=== PATIENT | female | born 1980 | race Two or more races ===

== ENCOUNTER 2018-02-22 10:54 | Inpatient (IN) | payer OTHER ==
[~2018-02-22] VITALS: Ht 157.5 cm; Wt 72.6 kg
[~2018-02-22 10:54] MED LIST: CIPRO500 MG; ULTRACET
== END 2018-02-23 14:19 | disposition home or self-care (01) | DRG 342 ==
LOC: ER 10:54 → SEC-K 14:50 → SURH 17:55
PROVIDERS: Surgery
PROC: BW25ZZZ Computerized Tomography (CT Scan) of Chest, Abdomen and Pelvis (ICD-10-PCS; 2018-02-22)
PROC: 0DTJ4ZZ Resection of Appendix, Percutaneous Endoscopic Approach (ICD-10-PCS; principal; 2018-02-22 15:00)
PROC: B246ZZZ Ultrasonography of Right and Left Heart (ICD-10-PCS; 2018-02-23)
DX: K35.89 Other acute appendicitis (principal); I31.8 Other specified diseases of pericardium

== ENCOUNTER 2019-07-19 13:58 | Outpatient (CLI) | payer OTHER | END 2019-07-19 14:04 | disposition home or self-care (01) | LOC: LAB 13:58 | DX: L02.415 Cutaneous abscess of right lower limb (principal) ==

== ENCOUNTER → 2022-01-28 | Outpatient (CLI) | payer OTHER | END | disposition home or self-care (01) | LOC: MAMO-SONO 13:26 | PROVIDERS: ATTEND General Practice | DX: Z12.31 Encounter for screening mammogram for malignant neoplasm of breast (principal); N60.09 Solitary cyst of unspecified breast ==

== ENCOUNTER 2022-05-29 10:07 | Outpatient (CLI) | payer OTHER ==
[~2022-05-29 10:07] MED LIST changes: +DICLOFENAC POTA50 MG PO
== END 2022-05-29 10:13 | disposition home or self-care (01) ==
LOC: SONOGRAMA 10:07
PROVIDERS: ATTEND General Practice
DX: E03.9 Hypothyroidism, unspecified (principal)

== ENCOUNTER 2022-05-29 11:10 | Outpatient (CLI) | payer OTHER | END 2022-05-29 11:11 | disposition home or self-care (01) | LOC: LAB 11:10 | PROVIDERS: ATTEND General Practice | DX: E03.9 Hypothyroidism, unspecified (principal) ==

== ENCOUNTER 2022-12-17 10:06 | Outpatient (CLI) | payer OTHER ==
[~2022-12-17 10:06] MED LIST changes: +VOLTAREN ARTHRI20 GM TOP
== END 2022-12-17 10:10 | disposition home or self-care (01) ==
LOC: LAB 10:06
DX: Z20.822 Contact with and (suspected) exposure to COVID-19 (principal)

== ENCOUNTER 2024-04-09 14:54 | Outpatient (CLI) | payer OTHER | END 2024-04-09 15:02 | disposition home or self-care (01) | LOC: RAD 14:54 | PROVIDERS: ATTEND General Practice | DX: M79.641 Pain in right hand (principal); M25.541 Pain in joints of right hand; G89.11 Acute pain due to trauma ==

== ENCOUNTER 2024-08-15 22:03 | Emergency (ER) | payer OTHER ==
[~2024-08-15] VITALS: Ht 160 cm; Wt 77.1 kg
[2024-08-15] MEDS ORDERED: FAMOtidine 10 MG/ML (4ML VIAL) IV ONE (23:00)
[2024-08-15] MEDS ORDERED: ONDANSETRON HCL 2 MG/ML VIAL IV ONE (23:00)
[2024-08-15] MEDS ORDERED: 0.9 % SODIUM CHLORIDE 1,000 ML IV ONE (23:00)
[2024-08-16] MEDS ORDERED: FAMOTIDINE/PF 20 MG/2 ML VIAL ONE (00:37)
[2024-08-16] MEDS ORDERED: ONDANSETRON HCL 2 MG/ML VIAL ONE (00:37)
[2024-08-16 02:10] LABS: HEMATOCRIT 41.4 % (36.0-45.00); HEMOGLOBIN 13.6 g/dL (12.0-15.00); MEAN CELL VOLUME 90.5 fL (80.00-100.00); MEAN CORPUSCULAR HEMOGLOBIN 29.7 pg (27.00-32.0); MEAN CORPUSCULAR HGB CONC 32.8 g/dl (32.0-36.0); PLATELET COUNT 377 K/uL (150-450); RED BLOOD COUNT 4.57 M/uL (4.00-6.00); RED CELL DISTRIBUTION WIDTH 15.6 % (11.5-14.5)
[2024-08-16 02:31] LABS: INR 0.99; PARTIAL THROMBOPLASTIN TIME 26.5 SECONDS (22.0-34.0); PROTHROMBIN TIME 10.8 SECONDS (9.0-11.5)
[2024-08-16 02:40] LABS: ALKALINE PHOSPHATASE 66 U/L (50-136); ALT/SGPT 23 U/L (12-78); ANION GAP 11 (10.0-20.0); AST/SGOT 14 U/L (15-37); BILIRUBIN TOTAL 0.57 mg/dL (0.3-1.2); BLOOD UREA NITROGEN 12 mg/dL (7-18); BUN CREA RATIO 20 (7.0-25.0); CALCIUM 8.9 mg/dL (8.5-10.1); CARBON DIOXIDE 26 mEq/L (21-32); CHLORIDE 107 mmol/L (98-107); CREATININE SERUM 0.61 mg/dL (0.55-1.02); GFR 106.06; GLOBULINA 3.8 G/DL (2.4-3.5); GLUCOSE FASTING 89 mg/dL (65-100); OSMOLALITY SERUM 279 MOSM/KG (275-295); POTASSIUM 4.42 mEq/L (3.5-5.1); SODIUM 140 mmol/L (136-145); TOTAL PROTEIN 7.8 gm/dL (6.4-8.2)
[2024-08-16 02:58] LABS: HCG QUANTITATIVE < 1 mUI/mL (1-3)
[2024-08-16 04:17] LABS: PH,URINE 5.5 (5.0-8.0); URINE APPEARANCE Clear; URINE BILIRRUBIN Negative (NEGATIVE); URINE BLOOD Negative; URINE COLOR Yellow; URINE GLUCOSE Negative (NEGATIVE); URINE KETONE Trace (NEGATIVE); URINE LEUKOCYTE Negative; URINE NITRATE Negative; URINE PROTEIN Trace (NEGATIVE); URINE UROBILINOGEN 0.2 E.U./dl
[2024-08-16 04:21] LABS: URINE BACTERIA 806.4 uL (0.0-1933); URINE EPITHELIAL CELLS 18.1 uL (0.0-38.8); URINE RBC 22.3 uL (0.0-20.8); URINE WBC 8.5 uL (0.0-23.2)
[2024-08-16 04:22] LABS: URINE CAST 0.44 uL (0.0-1.40)
[2024-08-16] MEDS ORDERED: ZOFRAN8 MG PO (06:00)
[2024-08-16] MEDS ORDERED: PEPCID40 MG PO ×2 (06:00→06:01)
[2024-08-16] MEDS ORDERED: INTESTINEX680 M2 PO (06:00)
== END 2024-08-16 06:28 ==
LOC: ER 22:06
PROVIDERS: General Practice
DX: R11.10 Vomiting, unspecified (principal); R19.7 Diarrhea, unspecified; R11.2 Nausea with vomiting, unspecified; R10.13 Epigastric pain; R07.9 Chest pain, unspecified; R10.9 Unspecified abdominal pain; Z88.0 Allergy status to penicillin
CPT/HCPCS: 36415; 71045; 74177; 93005; Q9965

== ENCOUNTER 2025-01-12 14:51 | Outpatient (CLI) | payer OTHER ==
[~2025-01-12 14:51] MED LIST changes: +INTESTINEX680 M2 PO; +PEPCID40 MG PO; +ZOFRAN8 MG PO
== END 2025-01-12 14:56 | disposition home or self-care (01) ==
LOC: RAD 14:51
PROVIDERS: ATTEND Specialist
DX: M54.50 Low back pain, unspecified (principal); E78.5 Hyperlipidemia, unspecified; D64.9 Anemia, unspecified

== ENCOUNTER 2025-05-17 08:59 | Outpatient (CLI) | payer OTHER | END 2025-05-17 13:50 | disposition home or self-care (01) | LOC: TOM 08:59 | PROVIDERS: ATTEND Dermatology | DX: Q24.8 Other specified congenital malformations of heart (principal); R51.9 Headache, unspecified; R00.0 Tachycardia, unspecified; I31.8 Other specified diseases of pericardium ==